=== PATIENT | female | born 1945 | race African-American/Black ===

== ENCOUNTER 2020-02-07 18:47 | Observation (INO) ==
[2020-02-07] MEDS ORDERED: ACETAMINOPHEN 325 MG TABLET PO PRN (22:11)
[2020-02-07] MEDS ORDERED: GLUCAGON 1 MG VIAL IM PRN (22:11)
[2020-02-07] MEDS ORDERED: ONDANSETRON 4 MG/2 ML VIAL IV PRN (22:11)
[2020-02-07] MEDS ORDERED: DEXTROSE 50% 25 GM/50 ML VIAL IV PRN (22:11)
[2020-02-07 23:13] LABS: Basophils % 0.6 % (0.0-0.8); Eosinophils # 0.3 10*3/uL (0.0-0.87); Eosinophils % 4.8 % (0.00-10.9); Hematocrit 37.4 VOL% (35.7-47.0); Hemoglobin 12.3 GM/DL (12.0-16.0); Immature Granulocytes % 0.1 %; Immature Granulocytes Absolute 0.01 #; Lymphocytes # 2.7 10*3/uL (1.4-4.0); Lymphocytes % 39.5 % (21.3-54.2); Mean Corpuscular HGB Conc 32.9 GM/DL (32-36); Mean Corpuscular Volume 93.3 FL (87-102); Mean Platelet Volume 12.9 FL (9.6-12.0); Monocytes % 8.8 % (1.7-12.7); Neutrophils % 46.2 % (38.7-73.9); Platelet Count 209 T/CUMM (130-400); Red Blood Count 4.01 MC/CUMM (3.8-5.5); Red Cell Distribution Width 14.9 % (9.3-17.3); White Blood Count 6.9 T/CUMM (4-12)
[2020-02-07 23:37] LABS: Albumin 3.6 G/DL (3.4-5.0); Bilirubin,Total 0.4 MG/DL (0.2-1.0); Calcium 9.4 MG/DL (8.5-10.1); Osmolality,Calculated 287.4 MOS/KG (273-304); Total Protein 7.1 G/DL (6.4-8.3)
[2020-02-08 01:59] LABS: Calcium 9.2 MG/DL (8.5-10.1); Osmolality,Calculated 286.4 MOS/KG (273-304)
[2020-02-08] MEDS: ALBUTEROL/IPRATROPIUM 3 ML NEB RESP TX SCH ×4 (02:03→18:58)
[2020-02-08 07:42] LABS: Risk Ratio 3.52
[2020-02-08] MEDS ORDERED: ASPIRIN EC 81 MG TABLET PO SCH (09:00)
[2020-02-08] MEDS ORDERED: FUROSEMIDE 40 MG/4 ML VIAL IV SCH (09:00)
[2020-02-08] MEDS ORDERED: ENOXAPARIN 40 MG/0.4 ML SYRINGE SUBCUT SCH (09:00)
[2020-02-08] MEDS: FUROSEMIDE 40 MG TABLET PO SCH (09:09)
[2020-02-08] MEDS: PANTOPRAZOLE 40 MG TABLET PO SCH (09:09)
[2020-02-08] MEDS: LOSARTAN 50 MG TABLET PO SCH (09:09)
[2020-02-08 16:56] LABS: Troponin I < 0.015 NG/ML (0.00-0.045)
[2020-02-08 19:27] LABS: Troponin I < 0.015 NG/ML (0.00-0.045)
[2020-02-08] MEDS ORDERED: ATORVASTATIN 40 MG TABLET PO SCH (21:00)
[2020-02-09] MEDS: ALBUTEROL/IPRATROPIUM 3 ML NEB RESP TX SCH ×2 (00:42→07:20)
[2020-02-09] MEDS: PANTOPRAZOLE 40 MG TABLET PO SCH (08:44)
[2020-02-09] MEDS: FUROSEMIDE 40 MG TABLET PO SCH (08:44)
[2020-02-09] MEDS: LOSARTAN 50 MG TABLET PO SCH (08:44)
[2020-02-09] MEDS ORDERED: ASPIRIN EC 81 MG TABLET PO SCH (09:00)
[2020-02-09 12:05] VITALS: BP 146/67
[2020-02-09] MEDS ORDERED: BUDESONIDE/FORMOTEROL 160-4.5 INHALER 6 GM INH SCH (15:00)
== END 2020-02-09 15:55 | disposition home health service (06) ==
LOC: N.TELES → SUATTDRO 20:27
PROVIDERS: ADMIT Internal Medicine; ATTEND Internal Medicine